=== PATIENT | female | born 1995 | race Two or more races ===

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

== ENCOUNTER 2018-07-23 20:56 | Emergency (ER) | payer MEDICARE, MEDICAID ==
[~2018-07-23] VITALS: Ht 154.9 cm; Wt 84.8 kg
[2018-07-23 21:45] VITALS: BP 104/65
--- NOTE | 2018-07-23 21:49 | Emergency Room Report ---
History of Present Illness General Chief Complaint: Generalized Weakness Source: Patient, Family Member Present Illness HPI This is a 22-year-old female with psychiatric history. She takes Abilify 2 mg a day. Mom brought in because of possible drug reaction. Patient has a new prescription for 2 mg Abilify. She just picked it up. Her last 3 days after she takes it she complaining of dizziness and flushing a pass out. She took one this morning. Denies any other complaint. No suicidal thoughts or homicidal thought. Mom looked at the old pill and the new pill and they looked different. This is why she came in here. Allergies: Coded Allergies: AMOXICILLIN (Verified Allergy, Unknown, 09/15/12) Patient History Past Medical History: see triage record, old chart reviewed, psych hx Past Surgical History: none Pertinent Family History: none Social History: Denies: smoking Last Menstrual Period: n/a Now: No - nexplanon implant Immunizations: other Reviewed Nursing Documentation: PMH: Agreed; PSxH: Agreed Nursing Documentation-PMH Hx Asthma: Yes History Of Psychiatric Problem: Yes - depression, bipolar, schizophrenia Hx Seizures: Yes Review of Systems Eye: Denies: eye pain, blurred vision ENT: Denies: ear pain, nose congestion, throat swelling Respiratory: Denies: cough, shortness of breath Cardiovascular: Denies: chest pain, palpitations Gastrointestinal: Denies: abdominal pain, diarrhea, nausea, vomiting Musculoskeletal: Denies: back pain, joint pain Skin: Denies: rash Neurological: Denies: headache, numbness Endocrine: Denies: increased thirst, increased urine Hematologic/Lymphatic: Denies: easy bruising All Other Systems: negative except mentioned in HPI Physical Exam Vital Signs Date Time Temp Pulse Resp B/P (MAP) Pulse Ox O2 Delivery O2 Flow Rate FiO2 07/23/18 21:22 98.1 50 16 104/65 98 Room Air vitals normal Sp02 EP Interpretation: reviewed, normal General Appearance: well appearing, no apparent distress, alert Head: normocephalic, atraumatic Eyes: bilateral eye PERRL, bilateral eye EOMI ENT: hearing grossly normal, normal pharynx Neck: full range of motion, supple, no meningismus Respiratory: chest non-tender, lungs clear, normal breath sounds Cardiovascular #1: regular rate, rhythm, no murmur Gastrointestinal: normal bowel sounds, non tender, no mass, no organomegaly, no bruit, non-distended Musculoskeletal: back normal, gait/station normal, normal range of motion Psychiatric: mood/affect normal Skin: warm/dry Medical Decision Making Diagnostic Impression: Primary Impression: Medication administered in error Qualified Codes: T50.901A - Poisoning by unspecified drugs, medicaments and biological substances, accidental (unintentional), initial encounter ER Course Patient has adverse effect after taking what is supposed to be Abilify. Mom show me the bottle and the pill is green in color. It is rectangular and has the imprint of S 90 3. When I looked this up in the pill identifier, it turned out to be out alprazolam, 2 mg. This is obviously overall medication. I told mom to take him back to the pharmacist and get the right prescription. The poultry processing supervisor at the pharmacy also need to investigate this issue. Last Vital Signs Date Time Temp Pulse Resp B/P (MAP) Pulse Ox O2 Delivery O2 Flow Rate FiO2 07/23/18 21:22 98.1 50 16 104/65 98 Room Air Status: improved Disposition: HOME, SELF-CARE Condition: Stable Additional Instructions: Stop taking her current medication. This is not Abilify. Take the bottle medication back to the pharmacy tomorrow. Have them give you the correct medication. The supervising pharmacist also need to investigate this matter. Return if symptom worsen. Rosendo Kaye MD Jul 23, 2018 21:49
[2018-07-23 23:40] VITALS: BP 124/77
== END 2018-07-23 23:43 | disposition home or self-care (01) ==
LOC: EMR 21:30
DX: T50.904A Poisoning by unspecified drugs, medicaments and biological substances, undetermined, initial encounter (principal); R42 Dizziness and giddiness; F20.9 Schizophrenia, unspecified; F31.9 Bipolar disorder, unspecified; Y92.9 Unspecified place or not applicable; Z79.899 Other long term (current) drug therapy; Z88.0 Allergy status to penicillin
CPT/HCPCS: 99282

== ENCOUNTER 2019-08-08 18:37 | Emergency (ER) | payer MEDICARE, MEDICAID ==
[~2019-08-08] VITALS: Ht 157.5 cm; Wt 81.6 kg
[2019-08-08 18:44] VITALS: BP 113/78
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
--- NOTE | 2019-08-08 19:02 | NUR ---
ED Nurse Note: Report received from Se paradise RN. pt is in bed, isidro maxine distress is noted.
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
[2019-08-08] MEDS ORDERED: DICYCLOMINE HCL10 MG ORAL (19:21)
[2019-08-08] MEDS ORDERED: OMEPRAZOLE20 M3 ORAL (19:21)
[2019-08-08 19:23] VITALS: BP 116/80
--- NOTE | 2019-08-08 19:23 | NUR ---
ER DISCHARGE NOTE: Patient is cleared to be discharged per ERMD, pt is aox4, on room air, with stable vital signs. pt was given dc and prescription instructions, pt was able to verbalize understanding, pt id band removed without complications. pt is able to ambulate with steady gait. pt took all belongings.
== END 2019-08-08 19:23 | disposition home or self-care (01) ==
LOC: EMR 18:59
DX: R19.7 Diarrhea, unspecified (principal); A05.9 Bacterial foodborne intoxication, unspecified; Z88.0 Allergy status to penicillin; F32.9 Major depressive disorder, single episode, unspecified; G40.909 Epilepsy, unspecified, not intractable, without status epilepticus
CPT/HCPCS: 99282